=== PATIENT | male | born 1985 | race Caucasian/White ===

== ENCOUNTER 2017-07-02 15:07 | Emergency (ER) | payer OTHER ==
[~2017-07-02] VITALS: Ht 175.2 cm; Wt 77.1 kg
== END 2017-07-02 18:45 | disposition left against medical advice (07) ==
LOC: ED 15:07
DX: R40.0 Somnolence (principal)

== ENCOUNTER 2018-09-02 18:52 | Emergency (ER) | payer SELFPAY ==
[~2018-09-02] VITALS: Wt 72.6 kg
[2018-09-02] MEDS ORDERED: PREDNISONE10 MG PO (19:54)
[2018-09-02] MEDS ORDERED: ZITHROMAX250 MG PO (19:54)
[2018-09-02] MEDS ORDERED: PROAIR HFA8.5 GM INH (19:54)
== END 2018-09-02 20:06 | disposition home or self-care (01) ==
LOC: ED 18:52
DX: J20.9 Acute bronchitis, unspecified (principal); J45.901 Unspecified asthma with (acute) exacerbation; M54.9 Dorsalgia, unspecified; F17.200 Nicotine dependence, unspecified, uncomplicated

== ENCOUNTER 2021-03-27 16:02 | Emergency (ER) | payer OTHER ==
[~2021-03-27] VITALS: Ht 182.8 cm; Wt 81.6 kg
[~2021-03-27 16:02] MED LIST: PREDNISONE10 MG PO; PROAIR HFA8.5 GM INH; ZITHROMAX250 MG PO
[2021-03-27 17:26] LABS: BASO # 0.1 10*3/uL (0.0-0.1); BASO % 0.9 % (0.0-1.0); EOS # 0.4 10*3/uL (0.0-0.4); EOS % 8.2 % (1.0-4.0); LYMPH # 1.6 10*3/uL (1.3-4.4); LYMPH % 29.6 % (27.0-41.0); MEAN CELL VOLUME 96.4 fl (80.0-94.0); MEAN CORPUSCULAR HGB 29.1 pg (27.0-31.0); MEAN CORPUSCULAR HGB CONC 30.2 g/dl (33.0-37.0); MONO # 0.4 10*3/uL (0.1-1.0); MONO % 7.7 % (3.0-9.0); NEUT # 2.9 10*3/uL (2.3-7.9); NEUT % 53.4 % (47.0-73.0); PLATELET COUNT AUTOMATED 211 10*3/uL (130-400); RED BLOOD COUNT 4.77 10*6/uL (4.50-5.90); RED CELL DISTRI WIDTH 13.3 % (0-14.5); WHITE BLOOD COUNT 5.3 10*3/uL (4.8-10.8)
[2021-03-27 18:02] LABS: ALBUMIN 2.3 gm/dl (3.1-4.5); ALKALINE PHOSPHATASE 52 U/L (45-117); BUN 16 mg/dl (7-24); CHLORIDE 107 mmol/L (98-107); CREATININE 0.81 mg/dL (0.70-1.30); POTASSIUM 4.2 mmol/L (3.5-5.1); SGOT/AST 64 IU/L (3-35); SGPT/ALT 119 U/L (12-78); SODIUM 132 mmol/L (136-145); TOTAL PROTEIN 7.5 gm/dL (6.4-8.2)
[2021-03-27 19:00] LABS: ALBUMIN 3.2 gm/dl (3.1-4.5); ALKALINE PHOSPHATASE 50 U/L (45-117); BUN 15 mg/dl (7-24); CHLORIDE 104 mmol/L (98-107); CREATININE 0.71 mg/dL (0.70-1.30); POTASSIUM 4.4 mmol/L (3.5-5.1); SGOT/AST 61 IU/L (3-35); SGPT/ALT 117 U/L (12-78); SODIUM 137 mmol/L (136-145); TOTAL PROTEIN 7.5 gm/dL (6.4-8.2)
[2021-03-27 21:46] LABS: BILIRUBIN Negative (Negative); BLOOD Negative (Negative); CLARITY Clear (Clear); COLOR Yellow (Yellow); GLUCOSE Negative (Negative); KETONE Negative (Negative); LEUKO ESTERASE Negative (Negative); NITRITE Negative (Negative); SPECIFIC GRAVITY <= 1.005 (1.001-1.030); UROBILINOGEN 0.2 E.U./dl (0.0-1.0)
[2021-03-27 21:55] LABS: EPITHELIAL CELLS 0-2; RBC 0-2 rbc/hpf (0-2); WBC 0-2 wbc/hpf (0-5)
[2021-03-27] MEDS ORDERED: SEPTDS PO (22:21)
== END 2021-03-27 22:40 | disposition home or self-care (01) ==
LOC: ED 16:02
PROVIDERS: Physician Assistant
DX: N30.90 Cystitis, unspecified without hematuria (principal); Z79.899 Other long term (current) drug therapy; Z87.891 Personal history of nicotine dependence

== ENCOUNTER 2022-05-02 09:09 | Emergency (ER) | payer OTHER ==
[~2022-05-02] VITALS: Ht 175.2 cm; Wt 72.6 kg
[~2022-05-02 09:09] MED LIST changes: +PROVENTIL HFA6.7 GM INH; +SEPTDS PO
[2022-05-02] MEDS ORDERED: PROAIR HFA8.5 GM INH (13:14)
[2022-05-02] MEDS ORDERED: ADVAIR 250/501 EA INH (13:14)
[2022-05-02] MEDS ORDERED: PREDNISONE10 MG PO (13:14)
[2022-05-02] MEDS ORDERED: ZITHROMAX250 MG PO (13:14)
== END 2022-05-02 13:40 | disposition home or self-care (01) ==
LOC: ED 09:09
DX: J45.901 Unspecified asthma with (acute) exacerbation (principal); F17.200 Nicotine dependence, unspecified, uncomplicated

== ENCOUNTER 2024-06-06 18:57 | Emergency (ER) | payer MEDICAID ==
[~2024-06-06] VITALS: Ht 185.4 cm; Wt 81.6 kg
[~2024-06-06 18:57] MED LIST changes: +ADVAIR 250/501 EA INH
== END 2024-06-06 19:39 | disposition home or self-care (01) ==
LOC: ED 18:57
DX: S62.336A Displaced fracture of neck of fifth metacarpal bone, right hand, initial encounter for closed fracture (principal); J45.909 Unspecified asthma, uncomplicated; F17.200 Nicotine dependence, unspecified, uncomplicated; Z98.890 Other specified postprocedural states; W22.01XA Walked into wall, initial encounter; Y93.89 Activity, other specified; Y92.009 Unspecified place in unspecified non-institutional (private) residence as the place of occurrence of the external cause; Y99.8 Other external cause status

== ENCOUNTER 2024-08-31 10:46 | Emergency (ER) | payer MEDICAID ==
[~2024-08-31] VITALS: Ht 182.8 cm; Wt 79.0 kg
[2024-08-31 13:11] LABS: BASO % 0.3 % (0.0-1.0); EOS # 0.2 10*3/uL (0.0-0.4); EOS % 3.4 % (1.0-4.0); HEMATOCRIT 44.5 % (42.0-52.0); LYMPH # 1.5 10*3/uL (1.3-4.4); LYMPH % 24.3 % (27.0-41.0); MEAN CELL VOLUME 88.5 fl (80.0-94.0); MEAN CORPUSCULAR HGB 28.8 pg (27.0-31.0); MEAN CORPUSCULAR HGB CONC 32.6 g/dl (33.0-37.0); MEAN PLATELET VOLUME 9.7 fl (9.6-12.3); MONO # 0.3 10*3/uL (0.1-1.0); MONO % 5.4 % (3.0-9.0); NEUT % 66.4 % (47.0-73.0); PLATELET COUNT AUTOMATED 185 10*3/uL (130-400); RED BLOOD COUNT 5.03 10*6/uL (4.50-5.90); RED CELL DISTRI WIDTH 13.3 % (0-14.5); WHITE BLOOD COUNT 6.1 10*3/uL (4.8-10.8)
[2024-08-31 13:12] LABS: BILIRUBIN Negative (Negative); BLOOD Negative (Negative); CLARITY Clear (Clear); COLOR Yellow (Yellow); GLUCOSE Negative (Negative); KETONE Trace (Negative); LEUKO ESTERASE Negative (Negative); NITRITE Negative (Negative); SPECIFIC GRAVITY >= 1.030 (1.001-1.030)
[2024-08-31 13:31] LABS: BACTERIA 1+; CALCIUM OXALATE CRYSTALS 3+; MUCOUS 1+; WBC 0-2 wbc/hpf (0-5)
[2024-08-31 13:33] LABS: ALKALINE PHOSPHATASE 52 U/L (46-116); BUN 13 mg/dl (9-23); CHLORIDE 102 mmol/L (98-107); LIPASE 25 U/L (12-53); POTASSIUM 4.4 mmol/L (3.4-5.1); SGPT/ALT 52 U/L (5-49); TOTAL PROTEIN 7.7 gm/dL (6.0-8.0)
== END 2024-08-31 15:26 | disposition home or self-care (01) ==
LOC: ED 10:46
PROVIDERS: Nurse Practitioner Family
DX: K76.0 Fatty (change of) liver, not elsewhere classified (principal); R10.11 Right upper quadrant pain; J45.909 Unspecified asthma, uncomplicated; E83.41 Hypermagnesemia; F17.200 Nicotine dependence, unspecified, uncomplicated; Z98.890 Other specified postprocedural states